=== PATIENT | female | born 1940 | race Caucasian/White ===

== ENCOUNTER 2017-01-27 01:55 | Observation (INO) | payer MEDICARE ==
[~2017-01-27] VITALS: Ht 149.9 cm; Wt 68.9 kg
[~2017-01-27 01:55] MED LIST: CLOP75TA PO; LOSA50TA PO; LOTR5CAP; NALOXONE HCL 0.4 MG/ML AMP IV PRN; RANI150C PO; SODIUM CHLORIDE 0.9% FLUSH 10 ML FLUSH IV FLUSH PRN; ZOCO40TA PO
[2017-01-27 02:48] VITALS: BP_SYST 125; BP_SYST 152; BP_SYST 157; BP_DIAS 83; BP_DIAS 84; BP_DIAS 87; PULSE 53; PULSE 58; RESP 20; TEMP 96.1; O2SAT 97
[2017-01-27 04:00] VITALS: BP 117/67; PULSE 61; RESP 16; TEMP 96.7; O2SAT 94
[2017-01-27 08:31] LABS: AUTOMATED NEUTROPHIL # 3.8 TH/MM3 (1.8-7.7); BASOPHIL % 0.6 % (0.0-2.0); EOSINOPHIL # 0.2 TH/MM3 (0-0.4); EOSINOPHIL % 4.1 % (0.0-4.0); HEMATOCRIT 38.4 % (35.0-46.0); HEMO FLAGS DIFF FINAL; LYMPH % 21.8 % (9.0-44.0); LYMPHOCYTE # 1.2 TH/MM3 (1.0-4.8); MEAN CELL VOLUME 85.4 FL (80.0-100.0); MEAN CORPUSCULAR HEMOGLOBIN 27.9 PG (27.0-34.0); MEAN CORPUSCULAR HGB CONC 32.7 % (32.0-36.0); MONO % 8.5 % (0.0-8.0); PLATELET COUNT 183 TH/MM3 (150-450); RED CELL DISTRIBUTION WIDTH 13.4 % (11.6-17.2); WHITE BLOOD COUNT 5.7 TH/MM3 (4.0-11.0)
[2017-01-27 08:39] LABS: POTASSIUM 3.5 MEQ/L (3.5-5.1)
[2017-01-27 08:42] LABS: BICARBONATE 28.1 MEQ/L (21.0-32.0)
[2017-01-27] MEDS: SODIUM CHLORIDE 0.9% FLUSH 10 ML FLUSH IV FLUSH SCH ×2 (09:00→21:33)
[2017-01-27 09:01] VITALS: BP 132/67; PULSE 59; RESP 19; TEMP 96.4; O2SAT 97
[2017-01-27 09:41] LABS: CREATINE KINASE 71 U/L (26-192)
--- NOTE | 2017-01-27 09:49 | RADRPT ---
EXAM DATE/TIME: 01/27/2017 08:45 [facility] COMPARISON: No previous studies available for comparison. INDICATIONS : Syncope. MEDICAL HISTORY : Hypercholesterolemia. Hypertension. Melanoma. SURGICAL HISTORY : None. ENCOUNTER: Initial ACUITY: 4-6 days PAIN SCORE: 0/10 LOCATION: Bilateral neck PEAK SYSTOLIC VELOCITIES (cm/sec): ICA/CCA RATIO: Right: 1.1 Left: 0.8 ICA: Right: 70 Left: 66 CCA: Right: 66 Left: 81 ECA: Right: 44 Left: 45 VERTEBRAL: Right: 29 antegrade Left: 48 antegrade Elevated flow velocities and ICA/CCA ratios have been found to correlate with increased degrees of vessel stenosis, calculated as percentage of diameter relative to a normal segment of distal ICA/CCA FINDINGS: RIGHT CAROTID: Minimal plaque. No significant stenosis is visualized. The waveforms are within normal limits. LEFT CAROTID: Minimal plaque. No significant stenosis is visualized. The waveforms are within normal limits. VERTEBRAL ARTERIES: Antegrade flow is seen in both vertebral arteries. MISCELLANEOUS: None. CONCLUSION: 1. Patent carotid arteries bilaterally. 2. Antegrade flow involving both vertebral arteries. Robbin Harvey Jr., MD on January 27, 2017 at 9:45 Board Certified Radiologist. This report was verified electronically.
--- NOTE | 2017-01-27 12:55 | HHI.HP ---
[facility]Staff Ad[facility] Diagnosis Diagnoses: Past Family Social History Allergies: Coded Allergies: No Known Allergies (Unverified , 01/26/17) Physical Exam Vital Signs Vital Signs Date Time Temp Pulse Resp B/P Pulse Ox O2 Delivery O2 Flow Rate FiO2 01/27/17 09:01 96.4 59 19 132/67 97 01/27/17 04:00 96.7 61 16 117/67 94 01/27/17 02:48 53 01/27/17 02:48 96.1 58 20 125/83 97 152/84 157/87 Result Diagram: 01/27/17 0800 01/27/17 0800 Physician Certification Order for Inpatient Services The services are ordered in accordance with Medicare regulations or non- Medicare payer requirements, as applicable. In the case of services not specified as inpatient-only, they are appropriately provided as inpatient services in accordance with the 2-midnight benchmark. days is the estimated time the patient will need to remain in the hospital, assuming treatment plan goals are met and no additional complications. Itz Jolley MD Jan 27, 2017 12:55 Current Medications Medications (Trade) Dose Ordered Sig/Jonn Route Start Time Stop Time Status Last Admin (NS Flush) 2 ml UNSCH PRN IV FLUSH 01/26/17 22:30 (NS Flush) 2 ml BID IV FLUSH 01/27/17 09:00 01/27/17 09:00 Naloxone HCl 0.4 mg 0.4 mg UNSCH PRN IV 01/26/17 22:30 (Rocephin Inj/NS Inj) 100 ml @ 200 mls/hr Q24H IV 01/27/17 13:00 01/27/17 13:38 (Plavix) 75 mg DAILY PO 01/27/17 14:00 01/27/17 13:53 (Cozaar) 50 mg DAILY PO 01/27/17 13:00 01/27/17 13:53 (Pepcid) 20 mg DAILY PO 01/27/17 14:00 01/27/17 13:53 (Pravachol) 80 mg DAILY PO 01/27/17 14:00 01/27/17 13:53 Family History Denies family history of strokes. The patient states her brother from a massive heart attack at age 62. The patient's father had prostate cancer and from complications after prostatectomy. Social History The patient is a former smoker and she quit 20 years ago. The patient denies alcohol. The patient denies using illicit drugs. The patient is and has 2 children. Physical Exam Vital Signs Vital Signs Date Time Temp Pulse Resp B/P Pulse Ox O2 Delivery O2 Flow Rate FiO2 01/27/17 09:01 96.4 59 19 132/67 97 01/27/17 04:00 96.7 61 16 117/67 94 01/27/17 02:48 53 01/27/17 02:48 96.1 58 20 125/83 97 152/84 157/87 Physical Exam GENERAL: This is a well-nourished, well-developed patient, in no apparent distress. SKIN: No rashes, ecchymoses or lesions. Cool and dry. HEAD: Atraumatic. Normocephalic. No temporal or scalp tenderness. EYES: Pupils equal round and reactive. Extraocular motions intact. No scleral icterus. No injection or drainage. ENT: Nose without bleeding, purulent drainage or septal hematoma. Throat without erythema, tonsillar hypertrophy or exudate. Uvula midline. Airway patent. NECK: Trachea midline. No JVD or lymphadenopathy. Supple, nontender, no meningeal signs. CARDIOVASCULAR: Regular rate and rhythm without murmurs, gallops, or rubs. RESPIRATORY: Clear to auscultation. Breath sounds equal bilaterally. No wheezes , rales, or rhonchi. GASTROINTESTINAL: Abdomen soft, non-tender, nondistended. No hepato-splenomegaly , or palpable masses. No guarding. MUSCULOSKELETAL: Extremities without clubbing, cyanosis, or edema. No joint tenderness, effusion, or edema noted. No calf tenderness. Negative Homans sign bilaterally. NEUROLOGICAL: Awake and alert. Cranial nerves II through XII intact. Motor and sensory grossly within normal limits. Five out of 5 muscle strength in all muscle groups. Normal speech. Laboratory Laboratory Tests Test 01/27/17 08:00 White Blood Count 5.7 Red Blood Count 4.50 Hemoglobin 12.5 Hematocrit 38.4 Mean Corpuscular Volume 85.4 Mean Corpuscular Hemoglobin 27.9 Mean Corpuscular Hemoglobin 32.7 Concent Red Cell Distribution Width 13.4 Platelet Count 183 Mean Platelet Volume 8.5 Neutrophils (%) (Auto) 65.0 Lymphocytes (%) (Auto) 21.8 Monocytes (%) (Auto) 8.5 Eosinophils (%) (Auto) 4.1 Basophils (%) (Auto) 0.6 Neutrophils # (Auto) 3.8 Lymphocytes # (Auto) 1.2 Monocytes # (Auto) 0.5 Eosinophils # (Auto) 0.2 Basophils # (Auto) 0.0 CBC Comment DIFF FINAL Differential Comment Sodium Level 145 Potassium Level 3.5 Chloride Level 109 Carbon Dioxide Level 28.1 Anion Gap 8 Blood Urea Nitrogen 21 Creatinine 0.61 Estimat Glomerular Filtration 95 Rate Random Glucose 89 Calcium Level 8.9 Total Creatine Kinase 71 Troponin I LESS THAN 0.02 Result Diagram: 01/27/17 0800 01/27/17 0800 Imaging Last Impressions Carotid Artery Ultrasound 01/27/17 0000 Signed Impressions: Service Date/Time: Friday, January 27, 2017 08:45 - CONCLUSION: 1. Patent carotid arteries bilaterally. 2. Antegrade flow involving both vertebral arteries. Robbin Harvey Jr., MD CT of the head obtained at the deltoid on emergency department show a possible small meningioma however no other acute findings. Chest x-ray shows no acute disease. Both images including CT of the head and chest x-ray were reviewed by me. Assessment and Plan Problem List: (1) Dizziness ICD Code: R42 Status: Acute Plan: CT of the brain with small meningioma, however no acute findings Place the patient on outpatient observation Believe the dizziness is related to vertigo I will start the patient on meclizine orally and Ativan as needed. We'll check an MRI of the brain Carotid ultrasound obtained and no stenosis observed. Check 2-D echocardiogram. (2) Vertigo ICD Code: R42 Status: Acute Plan: As above. Given persistent dizziness and vertigo I will order an MRI of the brain and consult neurology. (3) H/O TIA (transient ischemic attack) and stroke ICD Code: Z86.73 Status: Acute Plan: Continue Plavix (4) HTN (hypertension) ICD Code: I10 Status: Acute Plan: Blood pressure seems to be slightly elevated. Continue home antihypertensive medications. (5) UTI (urinary tract infection) ICD Code: N39.0 Status: Acute Plan: UA positive. I will start the patient Rocephin empirically. Follow-up urine culture and adjust antibiotics accordingly. (6) Hyperlipidemia ICD Code: E78.5 Status: Acute Plan: Continue statin. Assessment and Plan DVT prophylaxis: SCDs, will not start chemoprophylaxis with heparin or Lovenox cutaneously since patient is on Plavix. Code Status Full code Discussed Condition With Patient. Physician Certification Order for Inpatient Services The services are ordered in accordance with Medicare regulations or non- Medicare payer requirements, as applicable. In the case of services not specified as inpatient-only, they are appropriately provided as inpatient services in accordance with the 2-midnight benchmark. days is the estimated time the patient will need to remain in the hospital, assuming treatment plan goals are met and no additional complications. Problem Qualifiers (1) HTN (hypertension): Qualified Code: I10 - Essential hypertension (2) UTI (urinary tract infection): Qualified Code: N30.00 - Acute cystitis without hematuria Itz Jolley MD Jan 27, 2017 12:55
[2017-01-27 13:00] VITALS: BP 134/76; PULSE 58; RESP 19; TEMP 97; O2SAT 96
[2017-01-27] MEDS: cefTRIAXone INJ 2,000 MG in SODIUM CHLORIDE 0.9% INJ 100 ML IV SCH (13:38)
[2017-01-27] MEDS: CLOPIDOGREL 75 MG TAB PO SCH (13:53)
[2017-01-27] MEDS: LOSARTAN 50 MG TAB PO SCH (13:53)
[2017-01-27] MEDS: FAMOTIDINE 20 MG TAB PO SCH (13:53)
[2017-01-27] MEDS: PRAVASTATIN SOD 40 MG TAB PO SCH (13:53)
--- NOTE | 2017-01-27 15:25 | HHI.HP ---
H[facility] Service [facility] Hospitalists Primary Care Physician Non-Staff Admission Diagnosis Diagnoses: (1) Dizziness Diagnosis: Principal (2) Vertigo Diagnosis: Principal (3) H/O TIA (transient ischemic attack) and stroke Diagnosis: Secondary (4) HTN (hypertension) Diagnosis: Secondary (5) UTI (urinary tract infection) Diagnosis: Principal (6) Hyperlipidemia Diagnosis: Secondary Chief Complaint: dizziness Travel History International Travel<30 Days: No Contact w/Intl Traveler <30 Da: No Traveled to Known Affected Are: No History of Present Illness This is a 76-year-old female with past medical history significant for hypertension, hyperlipidemia, TIA who presents to [facility] complaining of 3 days of persistent dizziness, described by the patient as if the room was spinning brought up by the patient will enter head. The patient states that the dizziness lasts for 2-3 minutes and resolved by itself if the patient lays still and quiet. The patient states that 3 years ago he she had a similar episode in which she had dizziness and a period of aphasia which resolved by itself. She denies any aphasia today. Patient states dizziness is worsened with the patient's get up from bed. Denies fevers, chills, denies abdominal pain, diarrhea, denies dysuria, denies chest pain or shortness of breath. Review of Systems As per history of present illness, other systems reviewed by me and negative Past Family Social History Past Medical History Hypertension Hyperlipidemia TIA currently on antiplatelet therapy with Plavix Past Surgical History Denies any surgeries Reported Medications Reported Meds & Active Scripts Active Reported Clopidogrel (Clopidogrel Bisulfate) 75 Mg Tab 75 Mg PO DAILY Ranitidine (Ranitidine HCl) 150 Mg Cap 150 Mg PO DAILY Zocor (Simvastatin) 40 Mg Tab 40 Mg PO DAILY Lotrel 5-40 mg Capsule (Amlodipine Besylate/Benazepril) 1 Each Capsule Losartan (Losartan Potassium) 50 Mg Tab 50 Mg PO DAILY Allergies: Coded Allergies: No Known Allergies (Unverified , 01/26/17) Active Ordered Medications Current Medications Medications (Trade) Dose Ordered Sig/Jonn Route Start Time Stop Time Status Last Admin (NS Flush) 2 ml UNSCH PRN IV FLUSH 7/13/17 22:30 (NS Flush) 2 ml BID IV FLUSH 01/27/17 09:00 01/27/17 09:00 Naloxone HCl 0.4 mg 0.4 mg UNSCH PRN IV 01/26/17 22:30 (Rocephin Inj/NS Inj) 100 ml @ 200 mls/hr Q24H IV 01/27/17 13:00 01/27/17 13:38 (Plavix) 75 mg DAILY PO 01/27/17 14:00 01/27/17 13:53 (Cozaar) 50 mg DAILY PO 01/27/17 13:00 01/27/17 13:53 (Pepcid) 20 mg DAILY PO 01/27/17 14:00 01/27/17 13:53 (Pravachol) 80 mg DAILY PO 01/27/17 14:00 01/27/17 13:53 Family History Denies family history of strokes. The patient states her brother from a massive heart attack at age 62. The patient's father had prostate cancer and from complications after prostatectomy. Social History The patient is a former smoker and she quit 20 years ago. The patient denies alcohol. The patient denies using illicit drugs. The patient is and has 2 children. Physical Exam Vital Signs Vital Signs Date Time Temp Pulse Resp B/P Pulse Ox O2 Delivery O2 Flow Rate FiO2 01/27/17 13:00 97.0 58 19 134/76 96 01/27/17 09:01 96.4 59 19 132/67 97 01/27/17 04:00 96.7 61 16 117/67 94 01/27/17 02:48 53 01/27/17 02:48 96.1 58 20 125/83 97 152/84 157/87 Physical Exam GENERAL: This is a well-nourished, well-developed patient, in no apparent distress. SKIN: No rashes, ecchymoses or lesions. Cool and dry. HEAD: Atraumatic. Normocephalic. No temporal or scalp tenderness. EYES: Pupils equal round and reactive. Extraocular motions intact. No scleral icterus. No injection or drainage. ENT: Nose without bleeding, purulent drainage or septal hematoma. Throat without erythema, tonsillar hypertrophy or exudate. Uvula midline. Airway patent. NECK: Trachea midline. No JVD or lymphadenopathy. Supple, nontender, no meningeal signs. CARDIOVASCULAR: Regular rate and rhythm without murmurs, gallops, or rubs. RESPIRATORY: Clear to auscultation. Breath sounds equal bilaterally. No wheezes , rales, or rhonchi. GASTROINTESTINAL: Abdomen soft, non-tender, nondistended. No hepato-splenomegaly , or palpable masses. No guarding. MUSCULOSKELETAL: Extremities without clubbing, cyanosis, or edema. No joint tenderness, effusion, or edema noted. No calf tenderness. Negative Homans sign bilaterally. NEUROLOGICAL: Awake and alert. Cranial nerves II through XII intact. Motor and sensory grossly within normal limits. Five out of 5 muscle strength in all muscle groups. Normal speech. Laboratory Laboratory Tests Test 01/27/17 08:00 White Blood Count 5.7 Red Blood Count 4.50 Hemoglobin 12.5 Hematocrit 38.4 Mean Corpuscular Volume 85.4 Mean Corpuscular Hemoglobin 27.9 Mean Corpuscular Hemoglobin 32.7 Concent Red Cell Distribution Width 13.4 Platelet Count 183 Mean Platelet Volume 8.5 Neutrophils (%) (Auto) 65.0 Lymphocytes (%) (Auto) 21.8 Monocytes (%) (Auto) 8.5 Eosinophils (%) (Auto) 4.1 Basophils (%) (Auto) 0.6 Neutrophils # (Auto) 3.8 Lymphocytes # (Auto) 1.2 Monocytes # (Auto) 0.5 Eosinophils # (Auto) 0.2 Basophils # (Auto) 0.0 CBC Comment DIFF FINAL Differential Comment Sodium Level 145 Potassium Level 3.5 Chloride Level 109 Carbon Dioxide Level 28.1 Anion Gap 8 Blood Urea Nitrogen 21 Creatinine 0.61 Estimat Glomerular Filtration 95 Rate Random Glucose 89 Calcium Level 8.9 Total Creatine Kinase 71 Troponin I LESS THAN 0.02 Result Diagram: 01/27/17 0800 01/27/17 0800 Imaging Last Impressions Carotid Artery Ultrasound 01/27/17 0000 Signed Impressions: Service Date/Time: Friday, January 27, 2017 08:45 - CONCLUSION: 1. Patent carotid arteries bilaterally. 2. Antegrade flow involving both vertebral arteries. Robbin Harvey Jr., MD CT of the head obtained at the deltoid on emergency department show a possible small meningioma however no other acute findings. Chest x-ray shows no acute disease. Both images including CT of the head and chest x-ray were reviewed by me. Assessment and Plan Problem List: (1) Dizziness ICD Code: R42 Status: Acute Plan: CT of the brain with small meningioma, however no acute findings Place the patient on outpatient observation Believe the dizziness is related to vertigo I will start the patient on meclizine orally and Ativan as needed. We'll check an MRI of the brain Carotid ultrasound obtained and no stenosis observed. Check 2-D echocardiogram. (2) Vertigo ICD Code: R42 Status: Acute Plan: As above. Given persistent dizziness and vertigo I will order an MRI of the brain and consult neurology. (3) H/O TIA (transient ischemic attack) and stroke ICD Code: Z86.73 Status: Acute Plan: Continue Plavix (4) HTN (hypertension) ICD Code: I10 Status: Acute Plan: Blood pressure seems to be slightly elevated. Continue home antihypertensive medications. (5) UTI (urinary tract infection) ICD Code: N39.0 Status: Acute Plan: UA positive. I will start the patient Rocephin empirically. Follow-up urine culture and adjust antibiotics accordingly. (6) Hyperlipidemia ICD Code: E78.5 Status: Acute Plan: Continue statin. Assessment and Plan DVT prophylaxis: SCDs, will not start chemoprophylaxis with heparin or Lovenox cutaneously since patient is on Plavix. Code Status full code Discussed Condition With Patient Problem Qualifiers (1) HTN (hypertension): Qualified Code: I10 - Essential hypertension (2) UTI (urinary tract infection): Qualified Code: N30.00 - Acute cystitis without hematuria Itz Jolley MD Jan 27, 2017 15:25
[2017-01-27 17:08] VITALS: BP 130/79; PULSE 59; RESP 19; TEMP 96.8; O2SAT 99
[2017-01-27 20:00] VITALS: BP_SYST 112; BP_SYST 126; BP_DIAS 66; BP_DIAS 74; PULSE 67; RESP 16; TEMP 97.2; O2SAT 96
[2017-01-27] MEDS: ACETAMINOPHEN 325 MG TAB PO PRN (22:18)
[2017-01-28] VITALS: BP 133/75; PULSE 57; RESP 16; TEMP 97.3; O2SAT 96
[2017-01-28 04:00] VITALS: BP 133/75; PULSE 57; RESP 16; TEMP 97.3; O2SAT 96
[2017-01-28 08:00] VITALS: BP 145/98; PULSE 88; RESP 21; TEMP 96.9; O2SAT 94
[2017-01-28] MEDS: PRAVASTATIN SOD 40 MG TAB PO SCH (10:11)
[2017-01-28] MEDS: CLOPIDOGREL 75 MG TAB PO SCH (10:11)
[2017-01-28] MEDS: FAMOTIDINE 20 MG TAB PO SCH (10:11)
[2017-01-28] MEDS: LOSARTAN 50 MG TAB PO SCH (10:11)
[2017-01-28] MEDS: SODIUM CHLORIDE 0.9% FLUSH 10 ML FLUSH IV FLUSH SCH ×2 (10:12→21:00)
[2017-01-28] MEDS: ACETAMINOPHEN 325 MG TAB PO PRN (10:17)
--- NOTE | 2017-01-28 10:44 | EKG ---
Date Performed: 01/27/2017 Time Performed: 08:14:16 PTAGE: 76 years EKG: SINUS BRADYCARDIA MARKED LEFT AXIS DEVIATION INCOMPLETE RIGHT BUNDLE BRANCH BLOCK NONSPECIF IC T-WAVE ABNORMALITY ABNORMAL ECG NO PREVIOUS TRACING DOCTOR: Franco Mcconnell Interpretating Date/Time 01/28/2017 10:42:28
[2017-01-28 12:00] VITALS: BP 131/76; PULSE 66; RESP 20; TEMP 97; O2SAT 96
[2017-01-28] MEDS ORDERED: LORazepam 2 MG/ML VIAL IV PUSH PRN (12:00)
--- NOTE | 2017-01-28 12:44 | ECHRPT ---
Indication: SYNCOPE CONCLUSIONS Normal left ventricular size. Wall thickness is normal. The left ventricular systolic function is grossly normal on limited imaging. Left ventricular diastolic function parameters are normal. BP: 134 / 76 HR: 58 Rhythm: Sinus MEASUREMENTS (Male / Female) Normal Values Technical Quality:Fair 2D ECHO LV Diastolic Diameter PLAX 3.5 cm 4.2 - 5.9 / 3.9 - 5.3 cm LV Systolic Diameter PLAX 2.3 cm IVS Diastolic Thickness 1.0 cm 0.6 - 1.0 / 0.6 - 0.9 cm LVPW Diastolic Thickness 1.0 cm 0.6 - 1.0 / 0.6 - 0.9 cm LV Relative Wall Thickness 0.6 LVOT Diameter 1.5 cm Aortic Root Diameter 2.2 cm LA Systolic Diameter LX 2.4 cm 3.0 - 4.0 / 2.7 - 3.8 cm DOPPLER AV Peak Velocity 114.0 cm/s AV Peak Gradient 5.2 mmHg AV Mean Gradient 3.0 mmHg AV Velocity Time Integral 23.2 cm LVOT Peak Velocity 104.0 cm/s LVOT Peak Gradient 4.3 mmHg LVOT Velocity Time Integral 19.6 cm AV Area Cont Eq vti 1.5 cm AV Area Cont Eq pk 1.6 cm Mitral E Point Velocity 57.8 cm/s Mitral A Point Velocity 93.8 cm/s Mitral E to A Ratio 0.6 LV E' Lateral Velocity 7.9 cm/s Mitral E to LV E' Lateral Ratio 7.3 LV E' Septal Velocity 7.2 cm/s Mitral E to LV E' Septal Ratio 8.0 PV Peak Velocity 78.2 cm/s PV Peak Gradient 2.4 mmHg FINDINGS LEFT VENTRICLE Normal left ventricular size. Wall thickness is normal. The left ventricular systolic function is grossly normal on limited imaging. Left ventricular diastolic function parameters are normal. Naldo Sol MD (Electronically Signed) Final Date:28 January 2017 12:43
--- NOTE | 2017-01-28 13:21 | HHI.PR ---
Objective Vitals Vital Signs Date Time Temp Pulse Resp B/P Pulse Ox O2 Delivery O2 Flow Rate FiO2 01/28/17 12:00 97.0 66 20 131/76 96 01/28/17 08:00 96.9 88 21 145/98 94 01/28/17 04:00 97.3 57 16 133/75 96 01/28/17 00:00 97.3 57 16 133/75 96 01/27/17 20:00 97.2 67 16 112/66 96 124/75 126/74 01/27/17 17:08 96.8 59 19 130/79 99 I/O 01/27/17 01/27/17 01/27/17 01/28/17 01/28/17 01/28/17 07:00 15:00 23:00 07:00 15:00 23:00 Intake Total 0 ml 120 ml 1090 ml 440 ml Balance 0 ml 120 ml 1090 ml 440 ml Intake Oral 0 ml 1090 ml 440 ml IV Total 120 ml # Voids 5 2 # Bowel Movements 1 0 Result Diagram: 01/27/17 0800 01/27/17 0800 A/P Problem List: (1) Dizziness ICD Code: R42 Status: Acute (2) Vertigo ICD Code: R42 Status: Acute (3) H/O TIA (transient ischemic attack) and stroke ICD Code: Z86.73 Status: Acute (4) HTN (hypertension) ICD Code: I10 Status: Acute (5) UTI (urinary tract infection) ICD Code: N39.0 Status: Acute (6) Hyperlipidemia ICD Code: E78.5 Status: Acute Problem Qualifiers (1) HTN (hypertension): Qualified Code: I10 - Essential hypertension (2) UTI (urinary tract infection): Qualified Code: N30.00 - Acute cystitis without hematuria Itz Jolley MD Jan 28, 2017 13:21
[2017-01-28] MEDS: cefTRIAXone INJ 2,000 MG in SODIUM CHLORIDE 0.9% INJ 100 ML IV SCH (14:00)
[2017-01-28] MEDS: MECLIZINE HCL 25 MG TAB PO SCH ×2 (14:00→21:10)
--- NOTE | 2017-01-28 14:22 | HHI.PR ---
Subjective Remarks patient states her dizziness is improving but still present Last chest pain or short of breath Denies dizziness Denies visual disturbance. Objective Vitals Vital Signs Date Time Temp Pulse Resp B/P Pulse Ox O2 Delivery O2 Flow Rate FiO2 01/28/17 12:00 97.0 66 20 131/76 96 01/28/17 08:00 96.9 88 21 145/98 94 01/28/17 04:00 97.3 57 16 133/75 96 01/28/17 00:00 97.3 57 16 133/75 96 01/27/17 20:00 97.2 67 16 112/66 96 124/75 126/74 01/27/17 17:08 96.8 59 19 130/79 99 I/O 01/27/17 01/27/17 01/27/17 01/28/17 01/28/17 01/28/17 07:00 15:00 23:00 07:00 15:00 23:00 Intake Total 0 ml 120 ml 1090 ml 440 ml Balance 0 ml 120 ml 1090 ml 440 ml Intake Oral 0 ml 1090 ml 440 ml IV Total 120 ml # Voids 5 2 # Bowel Movements 1 0 Result Diagram: 01/27/17 0800 01/27/17 0800 Imaging Last Impressions Carotid Artery Ultrasound 01/27/17 0000 Signed Impressions: Service Date/Time: Friday, January 27, 2017 08:45 - CONCLUSION: 1. Patent carotid arteries bilaterally. 2. Antegrade flow involving both vertebral arteries. Robbin Harvey Jr., MD Objective Remarks AAOx3, nad. Sitting at bedside. Cranial nerves II through XII grossly intact. Muscle strength 5/5 in all extremities. Medications and IVs Current Medications Medications (Trade) Dose Ordered Sig/Jonn Route Start Time Stop Time Status Last Admin (NS Flush) 2 ml UNSCH PRN IV FLUSH 01/26/17 22:30 (NS Flush) 2 ml BID IV FLUSH 01/27/17 09:00 01/28/17 10:12 Naloxone HCl 0.4 mg 0.4 mg UNSCH PRN IV 01/26/17 22:30 (Rocephin Inj/NS Inj) 100 ml @ 200 mls/hr Q24H IV 01/27/17 13:00 01/28/17 14:00 (Plavix) 75 mg DAILY PO 01/27/17 14:00 01/28/17 10:11 (Cozaar) 50 mg DAILY PO 01/27/17 13:00 01/28/17 10:11 (Pepcid) 20 mg DAILY PO 01/27/17 14:00 01/28/17 10:11 (Pravachol) 80 mg DAILY PO 01/27/17 14:00 01/28/17 10:11 (Tylenol) 650 mg Q4H PRN PO 01/27/17 22:00 01/28/17 10:17 (Antivert) 25 mg Q8HR PO 01/28/17 14:00 01/28/17 14:00 (Ativan Inj) 1 mg Q4H PRN IV PUSH 01/28/17 12:00 Urinary Catheter: No Vascular Central Line Catheter: No A/P Problem List: (1) Dizziness ICD Code: R42 Status: Acute Plan: CT of the brain with small meningioma, however no acute findings Placed the patient on outpatient observation Believe the dizziness is related to vertigo I will start the patient on meclizine orally and Ativan as needed. MRI of the brain ordered and pending Carotid ultrasound obtained and no stenosis observed. 2-D echocardiogram ordered and pending (2) Vertigo ICD Code: R42 Status: Acute Plan: As above. Given persistent dizziness and vertigo I will order an MRI of the brain and consult neurology. (3) H/O TIA (transient ischemic attack) and stroke ICD Code: Z86.73 Status: Acute Plan: Continue Plavix (4) HTN (hypertension) ICD Code: I10 Status: Acute Plan: Blood pressure seems to be slightly elevated on admission. Home antihypertensive medications resumed. Blood pressure much is stable today. (5) UTI (urinary tract infection) ICD Code: N39.0 Status: Acute Plan: UA positive. Patient started on IV Rocephin for treatment of UTI. Continue Rocephin IV, urine culture negative. (6) Hyperlipidemia ICD Code: E78.5 Status: Acute Plan: Continue statin. Assessment and Plan DVT prophylaxis: SCDs, continue Plavix. Discharge Planning Possible discharge in a.m. pending clinical improvement and MRI results. Problem Qualifiers (1) HTN (hypertension): Qualified Code: I10 - Essential hypertension (2) UTI (urinary tract infection): Qualified Code: N30.00 - Acute cystitis without hematuria (3) Hyperlipidemia: Qualified Code: E78.5 - Hyperlipidemia, unspecified hyperlipidemia type Itz Jolley MD Jan 28, 2017 14:22
[2017-01-28 16:00] VITALS: BP 130/78; PULSE 58; RESP 18; TEMP 96.2; O2SAT 96
[2017-01-28] MEDS ORDERED: GADODIAMIDE PF 287 MG/ML 20 ML VIAL (for RAD MRI) IV ONE (16:07)
--- NOTE | 2017-01-28 16:14 | RADRPT ---
EXAM DATE/TIME: 01/28/2017 15:59 [facility] COMPARISON: CT BRAIN W/O CONTRAST, January 26, 2017, 20:17. INDICATIONS : Dizziness. MEDICAL HISTORY : Hypertension. SURGICAL HISTORY : None. ENCOUNTER: Initial ACUITY: 1 day PAIN SCORE: 0/10 LOCATION: cranial Please note a normal MRA of the brain does not entirely exclude the possibility of a small aneurysm, nor the possibility of distal intracranial vessel disease. TECHNIQUE: 3D time of flight MRA was performed. Source images, multiplanar STS MIP, and 3D volume MIP reconstru ctions were reviewed. FINDINGS: There is moderate narrowing at the origin of A1 on the right side due to atherosclerotic changes. The re is no evidence for aneurysm or vascular malformation. CONCLUSION: Moderate narrowing of origin of right A1 due to atherosclerotic changes. Orin Glez MD on January 28, 2017 at 16:10 Board Certified Radiologist. This report was verified electronically.
--- NOTE | 2017-01-28 16:21 | MB ---
cc: YOGI DURON M.D. DATE OF CONSULTATION: 01/28/2017. HISTORY OF PRESENT ILLNESS: A 76-year-old right-handed woman with a history of hypertension, hypercholesterolemia, melanoma on her lower leg twenty years ago. She takes Plavix after a stroke she says she had four years ago which causes some dizziness. She had been doing fine and then five days ago again became dizzy. No true vertigo. If she moves her head quick, she gets a bit dizzier if she turns over in bed but not to one side or the other. REVIEW OF SYSTEMS: Denied diabetes, myocardial infarction, stents, angioplasty, CABG, atrial fibrillation, Coumadin, renal, hepatic or pulmonary disease, thyroid disease, lupus, ulcer, seizure. No change in her hearing or sudden ringing in her ears or hearing loss. SOCIAL HISTORY: She is not a smoker or a drinker. She lives with her . FAMILY HISTORY: Positive for cancer. Negative for seizure or stroke. MEDICATIONS AT HOME: 1. Plavix. 2. Ranitidine. 3. Zocor. 4. Lotrel. 5. Losartan. ALLERGIES: NO KNOWN DRUG ALLERGIES. PHYSICAL EXAMINATION: VITAL SIGNS: 131/76, 20, 66, afebrile. NECK: There were no carotid bruits. HEART: Regular rhythm. I do not detect a murmur. NEUROLOGICAL EXAMINATION: Pupils are equal. Visual ball are full. Extraocular movements intact without nystagmus. The left TM was clear. Face is symmetric with normal sensation. Tongue was midline. There is no drift. She had normal strength in upper and lower extremities bilaterally. DTRs are trace throughout. Toes are downgoing bilaterally. Pin prick is intact throughout. She is not ataxic on ctycha-dx-ohwd or rgt-vm-[id number]. Gait was steady with negative Romberg. Hallpike maneuver was markedly positive to the left with just a brief lag time. I did the Shayy maneuver x3 starting on the left. She still felt a bit dizzy and had a little bit of nystagmus. LABORATORY STUDIES: CBC is normal. Urinalysis with 6 to 8 white cells. Coags normal. Basic metabolic profile essentially normal. CPK, troponin, liver function tests normal. IMAGING STUDIES: Carotid ultrasound was normal. Chest x-ray negative. Head CT scan: meningioma on the right on review of those films. There is a small high right parietal extra-axial meningioma. I do not see any posterior circulation abnormalities. Mastoids look clear on the CT. IMPRESSION: I think probably a left benign positional vertigo but a stroke is a possibility. 1. Will check an MRI of the brain and MRA of the neck to look for any vertebrobasilar disease and if that is negative, I can try the Shayy maneuver tomorrow on her. Today the Shayy maneuver did not seen to help a whole lot. 2. Will check some additional blood work on her. MD BRISEYDA Reynolds/HANG /2:45 PM /4:12 PM
--- NOTE | 2017-01-28 17:17 | RADRPT ---
EXAM DATE/TIME: 01/28/2017 15:59 [facility] COMPARISON: CT BRAIN W/O CONTRAST, January 26, 2017, 20:17. INDICATIONS : Dizziness. CONTRAST: 20 cc Omniscan (gadodiamide) IV MEDICAL HISTORY : Hypertension. SURGICAL HISTORY : None. ENCOUNTER: Initial ACUITY: 1 day PAIN SCORE: 0/10 LOCATION: cranial TECHNIQUE: Multiplanar, multisequence MRI of the brain was performed both prior to and following the administrat ion of paramagnetic contrast. FINDINGS: There is a small 1 cm calcified meningioma in right parietal region best seen on the prior CT. There is no evidence for intracranial hemorrhage, mass effect, edema, or extra-axial fluid collections. The re are no signs of acute infarction for technique. The diffusion portion, and postcontrast portion a re unremarkable. Slight degree of brain atrophy is seen. Slight periventricular white matter changes are seen nonspecific mostly consistent with chronic small vessel ischemic changes. CONCLUSION: Chronic atrophic and small vessel ischemic changes without any evidence for acute hemorrhage or mass effect and small calcified meningioma on the right best seen on CT . Orin Glez MD on January 28, 2017 at 17:08 Board Certified Radiologist. This report was verified electronically.
--- NOTE | 2017-01-28 17:18 | RADRPT ---
EXAM DATE/TIME: 01/28/2017 15:59 [facility] COMPARISON: No previous studies available for comparison. INDICATIONS : Dizziness. CONTRAST: 20 cc Omniscan (gadodiamide) IV MEDICAL HISTORY : Hypertension. SURGICAL HISTORY : None. ENCOUNTER: Initial ACUITY: 1 day PAIN SCORE: 0/10 LOCATION: neck Percent stenosis is calculated using the diameter of the stenotic region over the diameter of the nor mal distal internal carotid artery. TECHNIQUE: Bolus infused MRA of the extracranial circulation was performed using a neurovascular coil. Post pro cessing was performed including rotating subvolume maximum intensity projections of each carotid barbara ry, rotating full volume maximum intensity projections of both carotid arteries, sagittal and coronal sliding thin slab reformations of each carotid artery, and left oblique sliding thin slab reformatio n through the aortic arch to include the origin of the arch branch vessels. FINDINGS: AORTIC ARCH: There is a three vessel origin of the great vessels from the aorta. No evidence of ostial narrowing. RIGHT CAROTID: The common carotid artery is intact. The carotid bulb has a normal configuration without ulceration or narrowing. Minimal plaque is seen. The internal carotid artery lumen is smooth without stenosis. The external carotid artery is intact. LEFT CAROTID: The common carotid artery is intact. The carotid bulb has a normal configuration without ulceration or narrowing. The internal carotid artery lumen is smooth without stenosis. The external carotid ar olivia is intact. Minimal atherosclerotic plaque is seen. VERTEBRALS: The vertebral arteries have a symmetric diameter. No stenotic lesions are seen. CONCLUSION: Minimal atherosclerotic plaque bilaterally without any significant stenosis. Orin Glez MD on January 28, 2017 at 17:15 Board Certified Radiologist. This report was verified electronically.
[2017-01-28 20:00] VITALS: BP 138/82; PULSE 71; RESP 18; TEMP 96.3; O2SAT 94
[2017-01-29] VITALS: BP 128/77; PULSE 72; RESP 18; TEMP 96.7; O2SAT 94
[2017-01-29] MEDS: ACETAMINOPHEN 325 MG TAB PO PRN ×2 (01:01→13:46)
[2017-01-29 04:00] VITALS: BP_SYST 114; BP_SYST 134; BP_SYST 144; BP_DIAS 72; BP_DIAS 75; BP_DIAS 84; PULSE 60; RESP 18; TEMP 96.9; O2SAT 96
[2017-01-29] MEDS: MECLIZINE HCL 25 MG TAB PO SCH ×2 (05:59→15:00)
[2017-01-29 07:27] LABS: POTASSIUM 3.9 MEQ/L (3.5-5.1)
[2017-01-29 07:35] LABS: BICARBONATE 30.7 MEQ/L (21.0-32.0)
[2017-01-29 08:22] VITALS: BP 142/70; PULSE 66; RESP 19; TEMP 97.3; O2SAT 95
[2017-01-29] MEDS: CLOPIDOGREL 75 MG TAB PO SCH (10:44)
[2017-01-29] MEDS: LOSARTAN 50 MG TAB PO SCH (10:44)
[2017-01-29] MEDS: SODIUM CHLORIDE 0.9% FLUSH 10 ML FLUSH IV FLUSH SCH (10:45)
[2017-01-29] MEDS: FAMOTIDINE 20 MG TAB PO SCH (10:45)
[2017-01-29] MEDS: PRAVASTATIN SOD 40 MG TAB PO SCH (10:48)
[2017-01-29 12:25] VITALS: BP 149/84; PULSE 72; RESP 19; TEMP 96.5; O2SAT 98
[2017-01-29] MEDS ORDERED: MECL1TAB42 PO (13:21)
--- NOTE | 2017-01-29 13:27 | HHI.DS ---
Discharge Summary Admission Date Jan 27, 2017 at 02:05 Discharge Date: Jan 29, 2017 Admitting Diagnosis (1) Dizziness ICD Code: R42 (2) Vertigo ICD Code: R42 (3) H/O TIA (transient ischemic attack) and stroke ICD Code: Z86.73 (4) HTN (hypertension) ICD Code: I10 (5) UTI (urinary tract infection) ICD Code: N39.0 (6) Hyperlipidemia ICD Code: E78.5 Procedures See below Brief History - From Admission This is a 76-year-old female with past medical history significant for hypertension, hyperlipidemia, TIA who presents to [facility] complaining of 3 days of persistent dizziness, described by the patient as if the room was spinning brought up by the patient will enter head. The patient states that the dizziness lasts for 2-3 minutes and resolved by itself if the patient lays still and quiet. The patient states that 3 years ago he she had a similar episode in which she had dizziness and a period of aphasia which resolved by itself. She denies any aphasia today. Patient states dizziness is worsened with the patient's get up from bed. Denies fevers, chills, denies abdominal pain, diarrhea, denies dysuria, denies chest pain or shortness of breath. CBC/BMP: 01/27/17 0800 01/29/17 0655 Significant Findings Laboratory Tests Test 01/27/17 01/29/17 08:00 06:55 Monocytes (%) (Auto) 8.5 % (0.0-8.0) Eosinophils (%) (Auto) 4.1 % (0.0-4.0) Chloride Level 109 MEQ/L (98-107) Blood Urea Nitrogen 21 MG/DL (7-18) 19 MG/DL (7-18) Troponin I LESS THAN 0.02 NG/ML (0.02-0.05) Estimat Glomerular Filtration 87 ML/MIN (>89) Rate PE at Discharge AAOx3, nad. Sitting at bedside. Cranial nerves II through XII grossly intact. Muscle strength 5/5 in all extremities. Hospital Course 76 years old female admitted for dizziness history of TIA hypertension and hyperlipidemia, CT of the brain with small meningioma, however no acute findings Placed the patient on outpatient observation started on meclizine orally and Ativan as needed. Neurology consulted MRI of the brain ordered and showed atrophy with small vessel ischemia no other changes, MRA showed narrowing right A1, Carotid ultrasound obtained and no stenosis observed. 2-D echocardiogram also ordered, neurology called and cleared patient for discharge to follow up with his office in 1-2 days. All imaging reviewed personally by me Discussed extensively with the nurse and the patient Pt Condition on Discharge: Fair Discharge Disposition: Discharge Home Discharge Time: <= 30 minutes Discharge Instructions DIET: Follow Instructions for: Heart Healthy Diet Activities you can perform: Weight Bearing as Joyce Follow up Referrals: Neurology - 2-3 Days with William Painting MD New Medications: Meclizine HCl (Meclizine 25) 25 Mg Tab 25 MG PO Q8HR Vertigo #60 TAB Continued Medications: Clopidogrel (Clopidogrel) 75 Mg Tab 75 MG PO DAILY Blood Clot Prevention #30 Ref 0 TAB Losartan (Losartan) 50 Mg Tab 50 MG PO DAILY Blood Pressure Management #30 Ref 0 TAB Ranitidine (Ranitidine) 150 Mg Cap 150 MG PO DAILY #30 Ref 0 CAP Simvastatin (Zocor) 40 Mg Tab 40 MG PO DAILY Cholesterol Management #30 Ref 0 TAB Shelia Llanes MD Jan 29, 2017 13:26
== END 2017-01-29 16:49 | disposition home or self-care (01) ==
LOC: PHEDDLT 01:55 → PH3B 02:05
PROVIDERS: ADMIT Hospitalist; ATTEND Hospitalist
DX: R42 Dizziness and giddiness (principal); N30.00 Acute cystitis without hematuria; R07.9 Chest pain, unspecified; R00.1 Bradycardia, unspecified; I45.10 Unspecified right bundle-branch block; R94.31 Abnormal electrocardiogram [ECG] [EKG]; G31.9 Degenerative disease of nervous system, unspecified; R55 Syncope and collapse; I10 Essential (primary) hypertension; E78.5 Hyperlipidemia, unspecified; D32.9 Benign neoplasm of meninges, unspecified; E78.00 Pure hypercholesterolemia, unspecified; H55.00 Unspecified nystagmus; Z79.899 Other long term (current) drug therapy; Z87.891 Personal history of nicotine dependence; Z86.73 Personal history of transient ischemic attack (TIA), and cerebral infarction without residual deficits; Z79.02 Long term (current) use of antithrombotics/antiplatelets; Z85.820 Personal history of malignant melanoma of skin
CPT/HCPCS: 70544; 70548; 70553; 80048; 82550; 82607; 84484; 85025; 85652; 93005; 93306; 93880; A9579; G0378; J0696; 99281